=== PATIENT | female | born 2000 | race Caucasian/White ===

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

== ENCOUNTER 2021-02-08 05:14 | Day surgery (SDC) | payer OTHER ==
[2021-02-08 08:20] VITALS: BMI 23.5
[2021-02-08] MEDS ORDERED: MIDAZOLAM HCL 2 MG/2 ML SINGLE DOSE VIAL ONE (08:59)
[2021-02-08] MEDS ORDERED: SODIUM CHLORIDE 0.9% P/F 10 ML VIAL IJ ONE (09:46)
[2021-02-08] MEDS ORDERED: ceFAZolin SODIUM 1 GM VIAL ONE (09:46)
[2021-02-08] MEDS ORDERED: ceFAZolin SODIUM 1 GM VIAL IVPB ONE (09:47)
[2021-02-08] MEDS ORDERED: LIDOCAINE HCL/PF 2% SDV 5ML VIAL ONE (09:48)
[2021-02-08] MEDS ORDERED: LIDOCAINE HCL 1%, 10 MG/ML (20ML VIAL) INF ONE (09:56)
[2021-02-08] MEDS ORDERED: PROPOFOL 20 ML ONE ×2 (09:56)
[2021-02-08] MEDS ORDERED: ONDANSETRON 4 MG/2 ML VIAL ONE (10:01)
[2021-02-08] MEDS ORDERED: KETOROLAC TROMETHAMINE 30 MG/1 ML VIAL ONE (10:04)
[2021-02-08] MEDS ORDERED: LIDOCAINE HCL 1%, 10 MG/ML (20ML VIAL) ONE (10:09)
[2021-02-08] MEDS ORDERED: oxyCODONE HCL 5 MG TABLET PO PRN (10:36)
[2021-02-08] MEDS ORDERED: ONDANSETRON 4 MG/2 ML VIAL IVPUSH PRN (10:36)
[2021-02-08] MEDS ORDERED: PROMETHAZINE HCL 25 MG/1 ML VIAL IVPUSH PRN (10:36)
[2021-02-08] MEDS ORDERED: LACTATED RINGERS SOLUTION 1,000 ML IV SCH (10:45)
[2021-02-08] MEDS ORDERED: oxyCODONE HCL 5 MG TABLET ONE (11:40)
[2021-02-08 13:03] VITALS: BP 117/76; PULSE 84; TEMP 97.8
== END 2021-02-08 13:03 | disposition home or self-care (01) ==
LOC: JASU-SURG 05:14
PROVIDERS: ATTEND Surgery
PROC: 0HB5XZZ Excision of Chest Skin, External Approach (ICD-10-PCS; principal; 2021-02-08 10:00)
DX: L02.411 Cutaneous abscess of right axilla (principal)
CPT/HCPCS: 81025; 88305-TC; 94760

== ENCOUNTER 2021-03-26 19:49 | Emergency (ER) | payer OTHER ==
[2021-03-26 19:54] VITALS: BP 105/70; PULSE 107; TEMP 97; BMI 24.2
[2021-03-26] MEDS ORDERED: BENZOIN/ALOE VERA/STORAX/TOLU 58 ML BOTTLE TP ONE (21:44)
== END 2021-03-26 22:10 | disposition home or self-care (01) ==
LOC: JERFT 19:49
DX: L02.412 Cutaneous abscess of left axilla (principal)
CPT/HCPCS: 99283-25

== ENCOUNTER 2021-04-03 14:20 | Emergency (ER) | payer OTHER ==
[2021-04-03 14:46] VITALS: TEMP 98.2
[2021-04-03 14:55] VITALS: BP 121/78; PULSE 100; BMI 25.8
== END 2021-04-03 16:38 | disposition home or self-care (01) ==
LOC: JER 14:20
DX: L02.411 Cutaneous abscess of right axilla (principal)
CPT/HCPCS: 87070; 87186; 87205; 99283-25

== ENCOUNTER 2021-04-05 21:39 | Emergency (ER) | payer OTHER ==
[2021-04-05 21:43] VITALS: BP 118/76; PULSE 95; TEMP 98.3; BMI 25.8
== END 2021-04-05 23:12 | disposition home or self-care (01) ==
LOC: JERFT 21:39 → JER 21:39 → JERFT 23:12
DX: Z48.00 Encounter for change or removal of nonsurgical wound dressing (principal)
CPT/HCPCS: 99281-25

== ENCOUNTER 2021-07-02 10:43 | Emergency (ER) | payer OTHER ==
[2021-07-02 10:54] VITALS: BMI 25.8
[2021-07-02] MEDS ORDERED: ONDANSETRON *ODT* 4 MG TABLET SL ONE (11:36)
[2021-07-02] MEDS ORDERED: ONDANSETRON *ODT* 4 MG TABLET ONE (11:46)
[2021-07-02 11:53] VITALS: BP 110/68; PULSE 86; TEMP 98
== END 2021-07-02 11:53 | disposition home or self-care (01) ==
LOC: JERFT 10:43
PROC: 0H9CXZZ Drainage of Left Upper Arm Skin, External Approach (ICD-10-PCS; principal; 2021-07-02)
DX: L02.412 Cutaneous abscess of left axilla (principal)
CPT/HCPCS: 99283-25; Q0162

== ENCOUNTER 2021-07-11 13:45 | Emergency (ER) | payer OTHER ==
[2021-07-11 13:55] VITALS: BP 114/75; PULSE 74; TEMP 97; BMI 29.0
== END 2021-07-11 15:03 | disposition home or self-care (01) ==
LOC: JERFT 13:45 → JER 13:45 → JERFT 15:03
DX: L02.31 Cutaneous abscess of buttock (principal)
CPT/HCPCS: 99283-25

== ENCOUNTER 2021-08-30 10:23 | Emergency (ER) | payer OTHER ==
[2021-08-30 10:37] VITALS: BP 117/80; PULSE 94; TEMP 97.8; BMI 29.0
== END 2021-08-30 12:02 | disposition home or self-care (01) ==
LOC: JER 10:23
DX: L02.412 Cutaneous abscess of left axilla (principal)
CPT/HCPCS: 99281-25

== ENCOUNTER 2021-09-05 19:33 | Emergency (ER) | payer OTHER ==
[2021-09-05 19:40] VITALS: BP 119/79; PULSE 98; TEMP 97.6; BMI 29.0
== END 2021-09-05 21:36 | disposition home or self-care (01) ==
LOC: JER 19:33
DX: N92.0 Excessive and frequent menstruation with regular cycle (principal)
CPT/HCPCS: 36415; 84702; 99283-25

== ENCOUNTER 2022-09-02 14:13 | Emergency (ER) | payer OTHER ==
[2022-09-02 14:36] VITALS: BP 116/61; PULSE 106; RESP 20; TEMP 98.9; BMI 31.9
[2022-09-02] MEDS ORDERED: DIPHTH,PERTUSS(ACELL),TET 0.5 ML DISP.SYRIN IM ONE (15:38)
== END 2022-09-02 16:31 | disposition home or self-care (01) ==
LOC: JERFT 14:13 → JER 14:13 → JERFT 16:31
PROC: 0HQGXZZ Repair Left Hand Skin, External Approach (ICD-10-PCS; principal; 2022-09-02)
DX: S61.412A Laceration without foreign body of left hand, initial encounter (principal); W26.0XXA Contact with knife, initial encounter
CPT/HCPCS: 99282-25

== ENCOUNTER 2022-09-04 11:51 | Emergency (ER) | payer OTHER ==
[2022-09-04 12:05] VITALS: BP 125/82; RESP 18; TEMP 97; BMI 32.1
[2022-09-04 12:37] VITALS: PULSE 90
== END 2022-09-04 12:41 | disposition home or self-care (01) ==
LOC: JERFT 11:51
DX: Z48.00 Encounter for change or removal of nonsurgical wound dressing (principal)
CPT/HCPCS: 99281-25

== ENCOUNTER 2023-12-27 12:24 | Emergency (ER) | payer OTHER ==
[2023-12-27 12:32] VITALS: BP 126/69; PULSE 105; RESP 18; TEMP 98.2; BMI 30.7
[2023-12-27] MEDS ORDERED: predniSONE 20 MG TABLET (UD) ONE (13:22)
[2023-12-27] MEDS: predniSONE 20 MG TABLET (UD) PO ONE (13:27)
== END 2023-12-27 15:23 | disposition home or self-care (01) ==
LOC: JERFT 12:24
PROC: 3E023GC Introduction of Other Therapeutic Substance into Muscle, Percutaneous Approach (ICD-10-PCS; principal; 2023-12-27)
DX: R21 Rash and other nonspecific skin eruption (principal); T78.40XA Allergy, unspecified, initial encounter
CPT/HCPCS: 99284-25

== ENCOUNTER 2024-03-06 10:31 | Emergency (ER) | payer OTHER ==
[2024-03-06 10:59] VITALS: BP 132/77; RESP 18; TEMP 98.4; BMI 30.7
[2024-03-06 14:14] VITALS: PULSE 99
== END 2024-03-06 14:14 | disposition home or self-care (01) ==
LOC: JER 10:31
DX: L73.2 Hidradenitis suppurativa (principal)
CPT/HCPCS: 84703; 99283-25

== ENCOUNTER 2024-07-03 12:00 | Emergency (ER) | payer OTHER ==
[2024-07-03 12:14] VITALS: RESP 18; TEMP 98.4; BMI 32.5
[2024-07-03] MEDS ORDERED: metroNIDAZOLE 250 MG TABLET ONE (15:04)
[2024-07-03] MEDS: metroNIDAZOLE 500 MG TABLET PO ONE (15:07)
[2024-07-03 15:46] VITALS: BP 135/92; PULSE 105
== END 2024-07-03 15:52 | disposition home or self-care (01) ==
LOC: JERFT 12:00 → JER 12:00
DX: R45.851 Suicidal ideations (principal); F41.9 Anxiety disorder, unspecified; N76.0 Acute vaginitis
CPT/HCPCS: 87081; 99283-25

== ENCOUNTER 2024-07-17 19:52 | Emergency (ER) | payer OTHER ==
[2024-07-17 20:04] VITALS: BMI 30.4
[2024-07-17 21:00] LABS: EPI CELLS 19 /uL (0-25.1); HCG,QUALITATIVE URINE Negative; HYALINE CASTS 2 /uL (0-3.1); PH,URINE 6.5 (5.0-8.0); URINE APPEARANCE CLEAR; URINE BACTERIA 73 /uL (0-1359); URINE BILIRUBIN NEGATIVE (NEGATIVE); URINE COLOR YELLOW; URINE GLUCOSE (UA) NEGATIVE (NEGATIVE); URINE KETONE TRACE (NEGATIVE); URINE LEUK ESTERASE 1+ (NEGATIVE); URINE NITRITE NEGATIVE (NEGATIVE); URINE PROTEIN TRACE (NEGATIVE); URINE RBC 155 /uL (0-23.9); URINE WBC 47 /uL (0-25.8)
[2024-07-17] MEDS ORDERED: CEPHALEXIN MONOHYDRATE 500 MG CAPSULE (UD) ONE (21:52)
[2024-07-17] MEDS ORDERED: valACYclovir HCL 500 MG TABLET (FP) ONE (21:52)
[2024-07-17] MEDS: valACYclovir HCL 500 MG TABLET (FP) PO ONE (21:55)
[2024-07-17] MEDS: CEPHALEXIN MONOHYDRATE 500 MG CAPSULE (UD) PO ONE (21:55)
[2024-07-17 22:24] LABS: HIV INTERPRETATION NEGATIVE (NEGATIVE)
[2024-07-17 23:29] LABS: BASO % 0.4 % (0-2.0); EOS % 1.8 % (0-4.5); HEMATOCRIT 36.9 % (32.4-45.2); HEMOGLOBIN 12.2 GM/dL (10.7-15.3); MCH 26.3 pg (25.7-33.7); MCHC 33.2 g/dl (32.0-36.0); MEAN CELL VOLUME 79.3 fl (80-96); MEAN PLT VOLUME 7.3 fl (7.5-11.1); MONO % 5.2 % (3.8-10.2); NEUT % 76.6 % (42.8-82.8); PLATELET COUNT 515 10^3/uL (134-434); RBC 4.65 M/mm3 (3.60-5.2); RDW 13.2 % (11.6-15.6); WHITE BLOOD COUNT 10.1 K/mm3 (4.0-10.0)
[2024-07-17 23:36] LABS: INR 1.25 (0.83-1.09)
[2024-07-17 23:39] LABS: ACTIVATED PTT 40.5 SECONDS (25.2-36.5)
[2024-07-17 23:42] LABS: CHLORIDE 106 mmol/L (98-107); POTASSIUM 3.9 mmol/L (3.5-5.1); SODIUM 138 mmol/L (136-145)
[2024-07-17 23:44] LABS: ALBUMIN 3.5 g/dl (3.4-5.0); CALCIUM 9.2 mg/dL (8.5-10.1)
[2024-07-17 23:45] LABS: ANION GAP 7 mmol/L (4-13); CO2 25 mmol/L (21-32); GLUCOSE,RANDOM 97 mg/dL (74-106)
[2024-07-17 23:48] LABS: CREATININE 0.6 mg/dL (0.55-1.3); SGOT/AST 9 U/L (15-37); SGPT/ALT 18 U/L (13-61)
[2024-07-17 23:49] LABS: BILIRUBIN,TOTAL 0.3 mg/dL (0.2-1); TOT PROT 7.8 g/dl (6.4-8.2)
[2024-07-17 23:50] LABS: ALK PHOS 133 U/L (45-117)
[2024-07-18 11:56] VITALS: BP 112/69; PULSE 78; RESP 18; TEMP 98.8
== END 2024-07-18 14:50 | disposition home or self-care (01) ==
LOC: JER 19:52
DX: L02.214 Cutaneous abscess of groin (principal); L73.2 Hidradenitis suppurativa; R45.851 Suicidal ideations; Z11.3 Encounter for screening for infections with a predominantly sexual mode of transmission
CPT/HCPCS: 36415; 80053; 80307; 81003; 84703; 85025; 85610; 85730; 86780; 86803; 87389; 87491; 87529; 87591; 93005; 93010; 99284-25